=== PATIENT | female | born 1950 | race Caucasian/White ===

== ENCOUNTER 2017-04-16 06:47 | Day surgery (SDC) | payer OTHER, BC ==
[2017-04-09 15:46] VITALS: BMI 26.0
--- NOTE | 2017-04-10 11:33 | HP ---
Admitting History and Physical - Primary Care Physician PCP: Jose M Nuñez - Admission Chief Complaint: Metastatic left breast cancer History of Present Illness: 67 yo female with h/o metastatic left breast cancer presents for insertion of lifeport. History Source: Patient Limitations to Obtaining History: No Limitations - Past Medical History Heme/Onc: Yes: Cancer (left breast cancer 2008 now Stage 4 dz to bone and liver) - Past Surgical History Additional Past Surgical History: Left MRM with TRAM (2008) nasal surgery 1999 buntionectomy 1998 hysterectomy 1994 - Advance Directives Advance Directives: Yes: Living Will, Health Care Proxy - Smoking History Smoking history: Former smoker Have you smoked in the past 12 months: No If you are a former smoker, when did you quit?: 25 yrs ago - Alcohol/Substance Use Hx Alcohol Use: No Home Medications - Allergies Allergies/Adverse Reactions: Allergies Allergy/AdvReac Type Severity Reaction Status Date / Time moxifloxacin HCl Allergy Itching Verified 04/09/17 15:48 [From Avelox] levofloxacin [From Levaquin] AdvReac Verified 04/09/17 15:48 - Home Medications Home Medications: Ambulatory Orders Cyclosporine [Restasis Multidose] 1 drop OU BID 04/09/17 Family Disease History - Family Disease History Family Disease History: CA: Father (small bowel and prostate cancer), Sister ( leukemia) Review of Systems - Review of Systems Constitutional: reports: Lethargy Cardiovascular: reports: No Symptoms Respiratory: reports: No Symptoms Physical Examination Constitutional: Yes: Well Nourished Cardiovascular: Yes: WNL Respiratory: Yes: WNL Breast(s): Yes: Other (right breast is diffusely nodular without suspicious masses or adenopathy. Left chest tender 1.5 cm mass at 6 appears softer.) Problem List - Problems (1) Primary cancer of left breast with metastasis to other site Code(s): C50.912 - MALIGNANT NEOPLASM OF UNSPECIFIED SITE OF LEFT FEMALE BREAST C79.9 - SECONDARY MALIGNANT NEOPLASM OF UNSPECIFIED SITE Assessment/Plan Insertion of lifeport
[2017-04-16] MEDS ORDERED: HEPARIN NA (PORCINE) 5,000 UNITS/ML 1ML VIAL ONE (07:31)
[2017-04-16] MEDS ORDERED: LIDOCAINE HCL 1%, 10 MG/ML (20ML VIAL) ONE (07:32)
[2017-04-16] MEDS ORDERED: BUPIVACAINE HCL/PF 2.5 MG/ML - 30 ML VIAL IJ ONE (07:32)
[2017-04-16] MEDS ORDERED: BUPIVACAINE HCL/PF 0.5% (5MG/ML) 10 ML VIAL ONE (07:32)
[2017-04-16] MEDS ORDERED: LIDOCAINE 1%/EPI 1:100000 (20 ML MULTI DOSE VIAL) ONE (07:32)
[2017-04-16] MEDS ORDERED: MIDAZOLAM HCL 2 MG/2 ML SINGLE DOSE VIAL ONE (08:39)
[2017-04-16] MEDS ORDERED: PROPOFOL 20 ML ONE ×2 (08:50)
[2017-04-16] MEDS ORDERED: LIDOCAINE HCL/PF 2% SDV 5ML VIAL ONE (08:50)
[2017-04-16] MEDS ORDERED: KETOROLAC TROMETHAMINE 30 MG/1 ML VIAL IVPUSH PRN (09:14)
[2017-04-16] MEDS ORDERED: ONDANSETRON 4 MG/2 ML VIAL IVPB PRN (09:14)
[2017-04-16] MEDS ORDERED: DEXTROSE 5%-0.45% SALINE 1,000 ML IV SCH (09:15)
[2017-04-16] MEDS ORDERED: LACTATED RINGERS SOLUTION 1,000 ML IV SCH (09:45)
[2017-04-16] MEDS ORDERED: diphenhydrAMINE HCL 25 MG CAPSULE (FP) PO ONE (10:16)
[2017-04-16] MEDS ORDERED: oxyCODONE HCL 5 MG TABLET PO PRN (11:10)
[2017-04-16] MEDS ORDERED: diphenhydrAMINE HCL 12.5 MG/5 ML UNIT-DOSE CUPS PO ONE (11:15)
[2017-04-16 11:39] VITALS: TEMP 97.5
[2017-04-16 13:13] VITALS: BP 141/76; PULSE 68
--- NOTE | 2017-04-18 12:03 | OP ---
DATE OF OPERATION: 04/16/2017 PROCEDURE: Right subclavian single-lumen port placement. ANESTHESIA: Local. ATTENDING SURGEON: Jose M Nuñez MD ESTIMATED BLOOD LOSS: Minimal. COMPLICATIONS: None. DESCRIPTION OF PROCEDURE: Patient was made aware of the risks and benefits of the procedure and consented. She was placed in the supine position, and after IV sedation was administered, the operative site was prepped and draped in the usual sterile fashion. Patient was then placed in Trendelenburg position. Next, 1% lidocaine was used for local anesthesia. Using the Seldinger technique, the right subclavian vein was localized using intraoperative fluoroscopy. Skin incisions were made over the puncture site, and an additional larger incision was made inferomedial to that point. Using electrocautery, a larger incision was incised down past the subcutaneous tissue. An inferior pocket was then made using blunt and sharp dissection. The catheter was then tunneled from the larger incision to the smaller incision and fashioned to the proper length. The proximal end was attached to the port head, which was then placed into the skin pocket. Under direct fluoroscopic control, a dilator and introducer were placed over the wire into the right subclavian vein. The dilator and wire were then removed, and the catheter was placed through the introducer in good position. The introducer was then stripped away, and under fluoroscopy, it was documented that the catheter was in good position. There was easy withdrawal of blood and infusion of dilute heparinized saline. Next, 1 mL of constituted heparinized saline was placed through the port. The port was then sutured to the deep tissues with a 3-0 Prolene. The wound was copiously irrigated with normal saline, and hemostasis maintained by electrocautery. The skin was then closed with deep 3-0 Vicryl, followed by running subcuticular 4-0 Monocryl. Dermabond and a sterile dressing were then applied, and the patient was transferred to the recovery room in good condition. Chest x-ray revealed no evidence of complication and good position of the catheter. JOSE M NUÑEZ M.D. [id number]
== END 2017-04-16 12:10 | disposition home or self-care (01) ==
LOC: FASU 06:47
PROVIDERS: ATTEND Surgery Surgical Oncology
PROC: B516ZZA Fluoroscopy of Right Subclavian Vein, Guidance (ICD-10-PCS; 2017-04-16)
PROC: 05H533Z Insertion of Infusion Device into Right Subclavian Vein, Percutaneous Approach (ICD-10-PCS; principal; 2017-04-16 09:02)
DX: C50.912 Malignant neoplasm of unspecified site of left female breast (principal); C79.51 Secondary malignant neoplasm of bone; C78.7 Secondary malignant neoplasm of liver and intrahepatic bile duct
CPT/HCPCS: 71010-TC; 76000-TC; 94760; J1644

== ENCOUNTER 2019-02-24 08:08 | Day surgery (SDC) | payer OTHER, BC | END 2019-02-24 13:20 | disposition home or self-care (01) | LOC: FASU 08:08 ==